=== PATIENT | female | born 1950 | race Caucasian/White ===

== ENCOUNTER 2020-06-10 06:51 | Outpatient (CLI) | payer MEDICARE ==
--- NOTE | 2020-06-10 14:54 | RAD ---
EXAM: Two views chest PROVIDED CLINICAL HISTORY: Preoperative evaluation COMPARISON: None FINDINGS: Cardiac silhouette and pulmonary vasculature are within normal limits. There is mild elevation right hemidiaphragm. Increased density medial right lung base is likely related to superimposition of structures. Lungs are otherwise clear. The osseous structures have a normal appearance. IMPRESSION: No acute cardiopulmonary process.
[2020-06-10 15:59] LABS: #Basophils 0.1 10x3/uL (0.0-0.2); #Eosinphils 0.5 10x3/uL (0.0-0.5); #Monocytes 0.5 10x3/uL (0.0-1.1); #Neutrophils 5.2 10x3/uL (1.5-8.4); %Basophils 0.6 % (0.0-2.0); %Eosinophils 5.2 % (0.0-6.0); %Lymphocytes 33.4 % (18.0-47.0); %Monocytes 4.9 % (0.0-10.0); %Neutrophils 55.5 % (40.0-75.0); Mean Corpuscular HGB CONC 32.6 G/DL (32.0-36.0); Mean Corpuscular Hemoglobin 28.9 PG (27.0-33.0); Mean Corpuscular Volume 88.5 fl (80.0-100.0); Platelet Count 262 10x3/uL (130-400); RBC Distribution Width 13.1 % (11.5-14.5); Red Blood Cell (RBC) Count 4.85 10x6/uL (3.90-5.20); White Blood Cell (WBC) Count 9.4 10x3/uL (4.5-11.0)
[2020-06-10 16:37] LABS: Anion Gap 15 mmol/L (10-20); BUN (Urea Nitrogen) 18 mg/dL (9.8-20.1); Calc. Creatinine Clearance 0 mL/min (70-130); Calcium 10.1 mg/dL (7.8-10.44); Carbon Dioxide 27 mmol/L (23-31); Chloride 100 mmol/L (98-107); Estimated GFR-MDRD 61; Glucose 205 mg/dL (83-110); Potassium 3.8 mmol/L (3.5-5.1); Sodium 138 mmol/L (136-145)
[2020-06-11 03:06] LABS: SARS-CoV-2 MS2 Positive; SARS-CoV-2 N Gene Negative; SARS-CoV-2 S Gene Negative; SARS-CoV-2 by NAA Not Detected (NotDetected); SARS-CoV-2 orf1ab Negative
--- NOTE | 2020-06-11 16:08 | EKG ---
Test Reason : Blood Pressure : / mmHG Vent. Rate : 074 BPM Atrial Rate : 074 BPM P-R Int : 156 ms QRS Dur : 078 ms QT Int : 360 ms P-R-T Axes : 059 048 058 degrees QTc Int : 399 ms Normal sinus rhythm Normal ECG No previous ECGs available Confirmed by DR. Amy WOLFF ([id number]) on 06/11/2020 4:07:45 PM Referred By: CASSANDRA Confirmed By:DR. Amy WOLFF
== END 2020-06-10 06:52 | disposition home or self-care (01) ==
LOC: LABBT 06:51
PROVIDERS: ATTEND Specialist
DX: Z01.818 Encounter for other preprocedural examination (principal); Z20.828 Contact with and (suspected) exposure to other viral communicable diseases; C50.412 Malignant neoplasm of upper-outer quadrant of left female breast
CPT/HCPCS: 71046; 80048; 85025; U0003; 87635; 93005; 93010

== ENCOUNTER 2020-06-15 07:03 | Day surgery (SDC) | payer MEDICARE ==
[2020-06-14 14:16] VITALS: BMI 27.5
--- NOTE | 2020-06-15 09:29 | NM ---
NM Lymphoscintigraphy HISTORY: Malignant neoplasm of unspecified site of the left female breast. RADIOPHARMACEUTICAL: 402 uCi of technetium 99m filtered sulfur colloid. Left periareolar injection i n divided doses. FINDINGS: Multiple left axillary lymph nodes are seen. IMPRESSION: [place] lymph node(s) in the left axilla.
[2020-06-15] MEDS ORDERED: Rocuronium Bromide 10 MG/ML (10ML VIAL) ONE (10:39)
[2020-06-15] MEDS ORDERED: Lidocaine 1% PF 5 ML VIAL ONE (10:39)
[2020-06-15] MEDS ORDERED: Ondansetron PF 4 MG/2 ML Vial ONE (10:39)
[2020-06-15] MEDS ORDERED: PROPOFOL 200 MG/20 ML VIAL ONE (10:39)
[2020-06-15] MEDS ORDERED: ePHEDrine 50 MG/ML VIAL ONE (10:39)
[2020-06-15] MEDS ORDERED: Glycopyrrolate 0.2 MG/ML 5 ML SYRINGE ONE (10:39)
[2020-06-15] MEDS ORDERED: Dexamethasone 20 MG/5 ML VIAL ONE (10:39)
[2020-06-15] MEDS ORDERED: Acetaminophen 500 MG TAB ONE ×2 (10:42)
[2020-06-15] MEDS ORDERED: Ketorolac Tromethamine 30 MG/ML VIAL ONE (10:42)
[2020-06-15] MEDS ORDERED: Fentanyl 250 MCG/5 ML VIAL ONE (11:53)
[2020-06-15] MEDS ORDERED: Scopolamine 1.5 mg/72 hour Patch ONE (11:56)
[2020-06-15] MEDS ORDERED: Lidocaine 1% w/Epinephrine 1:100K 20 ML VIAL ONE (11:58)
[2020-06-15] MEDS ORDERED: Bupivacaine 0.25% HCL 30 ML VIAL ONE (11:58)
[2020-06-15] MEDS ORDERED: Isosulfan Blue 50 MG/5 ML VIAL ONE (11:58)
[2020-06-15] MEDS ORDERED: Fentanyl 100 MCG/2 ML VIAL ONE ×3 (14:25→16:54)
[2020-06-15] MEDS ORDERED: Ketorolac Tromethamine 30 MG/ML VIAL IVP PRN (15:03)
[2020-06-15] MEDS ORDERED: Promethazine HCl 25 MG/ML VIAL SLOW IVP PRN (15:03)
[2020-06-15] MEDS ORDERED: Ondansetron HCl/PF 4 MG/2 ML Vial IVP PRN (15:03)
[2020-06-15] MEDS ORDERED: HYDROmorphone 2 MG/ML VIAL SLOW IVP PRN (15:03)
[2020-06-15] MEDS ORDERED: Promethazine HCl 25 MG/ML VIAL IM PRN (15:03)
--- NOTE | 2020-06-16 12:52 | OP ---
DATE OF PROCEDURE: 06/15/2020 PREOPERATIVE DIAGNOSIS: Left breast cancer. POSTOPERATIVE DIAGNOSIS: Left breast cancer. PROCEDURES PERFORMED: Bilateral mastectomy with left axillary sentinel lymph node biopsy. ANESTHESIA: General endotracheal. INDICATION: The patient is a 70-year-old white female. She was recently diagnosed with left breast cancer. After a lengthy discussion with the patient regarding the options, she has elected to proceed with a bilateral mastectomy without reconstruction and left axillary sentinel lymph node biopsy. DESCRIPTION OF OPERATION: Informed consent was obtained. The patient had been taken to nuclear medicine suite, where lymphoscintigraphy was performed preoperatively revealing left axillary sentinel lymph nodes. She was then taken to the operating room, where general endotracheal anesthesia was obtained with the patient in supine position. Bilateral breasts and axilla were prepped with ChloraPrep and draped in sterile fashion. Attention was turned first to the left breast and axilla. A 3 mL of isosulfan blue was infiltrated in the left periareolar subdermal tissue and massaged for 5 minutes. An elliptical mastectomy incision was created across the breast, attempting to minimize any redundant skin. Dissection was then turned toward the axilla. The axillary portion of the mastectomy incision was dissected further. Neoprobe was utilized to identify areas of maximum radio intensity. I was able to identify 3 separate lymph nodes within the axilla that were radioactive and blue stained. Each of these was dissected circumferentially. All investing lymphatics were divided between clamps and 3-0 silk ties. Attention was then turned to the right breast. An elliptical right mastectomy incision was created. All dissection was carried out using the plasma blade. Flaps were raised superiorly, inferiorly, and medially down to the chest wall. The breast was then swept off the chest wall in a medial to lateral fashion maintaining hemostasis using the plasma blade cautery. At the lateral aspect of the pectoralis, the dissection was completed and the specimen was removed intact. It was tagged for orientation and submitted to Pathology. The skin edges were then carefully tailored to minimize redundant skin. Dog-ear corrections were utilized both laterally and medially. A #19 round fluted drain was brought out laterally and inferiorly and secured with 3-0 nylon suture. The skin edges were then approximated with a running suture of 3-0 Vicryl and skin domingo. Attention was then turned to the left breast. The flaps were raised through the prior mastectomy incisions in a similar fashion to what I had done on the right. The breast was again swept off the chest wall in a medial to lateral fashion. The sentinel nodes had been negative and therefore did not require further axillary dissection. As the breast was swept off the chest wall, it was removed from the wound and tagged with suture for orientation and submitted to Pathology. Meticulous hemostasis was obtained. Again, the skin edges were tailored with redundant skin removed as necessary. A drain was again placed and secured externally. The wound was closed in layers with 3-0 Vicryl and skin domingo. A dressing of Xeroform gauze, fluffed gauze, and a Yessenia wrap was created. Sterile occlusive dressings were placed over the drain exit sites. There were no complications. Blood loss was minimal. The patient tolerated the procedure well and was taken to recovery room in stable condition. Job ID: [id number]
== END 2020-06-15 19:22 | disposition home or self-care (01) ==
LOC: SDC 07:03
PROVIDERS: ATTEND Specialist
PROC: 0HBV0ZZ Excision of Bilateral Breast, Open Approach (ICD-10-PCS; principal; 2020-06-15)
PROC: 07B60ZX Excision of Left Axillary Lymphatic, Open Approach, Diagnostic (ICD-10-PCS; 2020-06-15)
DX: C50.412 Malignant neoplasm of upper-outer quadrant of left female breast (principal); N60.31 Fibrosclerosis of right breast; D64.9 Anemia, unspecified; M19.90 Unspecified osteoarthritis, unspecified site; Z17.0 Estrogen receptor positive status [ER+]; Z79.899 Other long term (current) drug therapy
CPT/HCPCS: 19301; 38525; 38900; 78195; 88307; 88333; 88334; A9541; Q9968; J0690; J1100; J1885; J2405; J2704; J3010; J3490; S0020

== ENCOUNTER 2020-07-21 08:16 | Outpatient (CLI) | payer MEDICARE ==
[2020-07-21 14:53] LABS: #Basophils 0.1 10x3/uL (0.0-0.2); #Eosinphils 0.3 10x3/uL (0.0-0.5); #Monocytes 0.6 10x3/uL (0.0-1.1); #Neutrophils 4.5 10x3/uL (1.5-8.4); %Basophils 0.7 % (0.0-2.0); %Eosinophils 3.4 % (0.0-6.0); %Lymphocytes 33.8 % (18.0-47.0); %Monocytes 7.4 % (0.0-10.0); %Neutrophils 54.5 % (40.0-75.0); Hemoglobin 13.4 g/dL (12.0-16.0); Mean Corpuscular HGB CONC 31.8 G/DL (32.0-36.0); Mean Corpuscular Hemoglobin 28.1 PG (27.0-33.0); Mean Corpuscular Volume 88.5 fl (80.0-100.0); Mean Platelet Volume 11.1 fl (7.4-10.4); Platelet Count 270 10x3/uL (130-400); Red Blood Cell (RBC) Count 4.77 10x6/uL (3.90-5.20); White Blood Cell (WBC) Count 8.3 10x3/uL (4.5-11.0)
[2020-07-21 15:17] LABS: Anion Gap 15 mmol/L (10-20); BUN (Urea Nitrogen) 20 mg/dL (9.8-20.1); Calc. Creatinine Clearance 0 mL/min (70-130); Carbon Dioxide 26 mmol/L (23-31); Chloride 105 mmol/L (98-107); Glucose 103 mg/dL (83-110); Potassium 4.9 mmol/L (3.5-5.1); Sodium 141 mmol/L (136-145)
[2020-07-22 01:38] LABS: SARS-CoV-2 MS2 Positive; SARS-CoV-2 N Gene Negative; SARS-CoV-2 S Gene Negative; SARS-CoV-2 by NAA Not Detected (NotDetected); SARS-CoV-2 orf1ab Negative
== END 2020-07-21 08:17 | disposition home or self-care (01) ==
LOC: LABBT 08:16
PROVIDERS: ATTEND Specialist
DX: Z01.812 Encounter for preprocedural laboratory examination (principal); Z20.822 Contact with and (suspected) exposure to COVID-19; C50.412 Malignant neoplasm of upper-outer quadrant of left female breast
CPT/HCPCS: 80048; 85025; U0003; U0005; 87635

== ENCOUNTER 2020-07-26 06:02 | Day surgery (SDC) | payer MEDICARE ==
[2020-07-22 13:59] VITALS: BMI 28.3
[2020-07-26] MEDS ORDERED: Acetaminophen 500 MG TAB ONE (06:16)
[2020-07-26] MEDS ORDERED: Ketorolac Tromethamine 30 MG/ML VIAL ONE (06:16)
[2020-07-26] MEDS ORDERED: Lidocaine 1% (PF) 30 ML VIAL ONE (07:36)
[2020-07-26] MEDS ORDERED: Lidocaine 2% w/Epinephrine 1:200K 20 ML VIAL ONE (07:36)
[2020-07-26] MEDS ORDERED: Bupivacaine 0.25% HCL 30 ML VIAL ONE (07:36)
[2020-07-26] MEDS ORDERED: Scopolamine 1.5 mg/72 hour Patch ONE (07:41)
[2020-07-26] MEDS ORDERED: Famotidine/PF 20 mg/2ml Vial ONE (07:41)
[2020-07-26] MEDS ORDERED: Midazolam HCl 2 mg/2 ml Vial ONE (07:42)
[2020-07-26] MEDS ORDERED: Propofol 500 MG/50 ML VIAL ONE (07:54)
[2020-07-26] MEDS ORDERED: Fentanyl 100 MCG/2 ML VIAL ONE (07:54)
[2020-07-26] MEDS ORDERED: Dexamethasone 20 MG/5 ML VIAL ONE (08:46)
[2020-07-26] MEDS ORDERED: PROPOFOL 200 MG/20 ML VIAL ONE (08:46)
[2020-07-26] MEDS ORDERED: Ondansetron PF 4 MG/2 ML Vial ONE (08:46)
--- NOTE | 2020-07-26 09:30 | RAD ---
XR Chest 1 View Portable HISTORY: Mediport placement. Breast cancer COMPARISON: 06/10/2020 FINDINGS: The heart size is normal. There has been interval placement of right subclavian Mediport ca theter with tip in the projection of the SVC. The lungs are well expanded without focal areas of consolidation, pneumothorax or pleural effusions. IMPRESSION: No radiographic evidence of acute cardiopulmonary process.
--- NOTE | 2020-07-26 21:49 | OP ---
DATE OF PROCEDURE: 07/26/2020 PREOPERATIVE DIAGNOSIS: Recent left breast cancer. POSTOPERATIVE DIAGNOSIS: Recent left breast cancer. PROCEDURE PERFORMED: Placement of right subclavian low-profile power compatible MediPort using fluoroscopic guidance. ANESTHESIA: Total intravenous anesthesia with local using 0.25% Marcaine with epinephrine. INDICATIONS: The patient is a 70-year-old white female. She recently had a left breast cancer. She is status post bilateral mastectomy. She presents at this time for MediPort placement for chemotherapy administration. DESCRIPTION OF OPERATION: Informed consent was obtained. The patient was taken to the operating room where total intravenous anesthesia was obtained with the patient in supine position. Right periclavicular area was prepped with ChloraPrep and draped in sterile fashion. Local anesthetic was infiltrated and a large-gauge needle was passed under the clavicle in the subclavian vein. Guidewire was passed through the needle and fluoroscopically confirmed to enter the superior vena cava. Additional local anesthetic was infiltrated and transverse incision was created based on needle insertion site. A subcutaneous pocket was dissected inferiorly. Introducer dilator was passed over the guidewire under fluoroscopic guidance. The guidewire and dilator were removed, and the catheter was passed through the introducer. The tip of the catheter was positioned at the atriocaval junction and the catheter was trimmed to the appropriate length and secured to the locking hub of the MediPort. The port was then placed in the subcutaneous pocket where it was secured to the pectoral fascia with 2 interrupted sutures of 3-0 Prolene. The incision was then closed in layers with 3-0 and 4-0 Monocryl. Additional local anesthetic was infiltrated. The port was cannulated with a Whatley needle and it aspirated blood freely and was flushed with heparinized saline. Dermabond was placed externally on the skin incision. There were no complications. Blood loss was negligible. The patient tolerated the procedure well and was taken to recovery room in stable condition. FINDINGS: A low-profile port was selected secondary to the patient's body habitus. The surgery was performed uneventfully and with essentially no blood loss. At the end of the procedure, the port was accessed with an access needle which I aspirated and flushed easily. A sterile occlusive dressing was placed over the access needle. Postprocedure chest x-ray shows good placement of the port and catheter. Job ID: [id number]
== END 2020-07-26 10:08 | disposition short-term general hospital (02) ==
LOC: SDC 06:02
PROVIDERS: ATTEND Specialist
PROC: 02HV33Z Insertion of Infusion Device into Superior Vena Cava, Percutaneous Approach (ICD-10-PCS; principal; 2020-07-26)
DX: C50.412 Malignant neoplasm of upper-outer quadrant of left female breast (principal)
CPT/HCPCS: 71045; 80053; 82248; 83615; 84100; 84550; C1788; J0690; J1100; J1642; J1885; J2001; J2250; J2405; J2704; J3010; S0020; S0028

== ENCOUNTER 2022-10-09 13:34 | Outpatient (CLI) | payer MEDICARE | END 2022-10-09 13:35 | disposition home or self-care (01) | LOC: BICMAMMO 13:34 | PROVIDERS: ATTEND Internal Medicine Hematology & Oncology | DX: T38.6X5A Adverse effect of antigonadotrophins, antiestrogens, antiandrogens, not elsewhere classified, initial encounter (principal); M85.80 Other specified disorders of bone density and structure, unspecified site | CPT/HCPCS: 77080 ==

== ENCOUNTER 2023-11-14 11:34 | Outpatient (CLI) | payer MEDICARE | END 2023-11-14 11:35 | disposition home or self-care (01) | LOC: BICMAMMO 11:34 | PROVIDERS: ATTEND Internal Medicine Hematology & Oncology | DX: Z13.820 Encounter for screening for osteoporosis (principal); M85.89 Other specified disorders of bone density and structure, multiple sites | CPT/HCPCS: 77080 ==